=== PATIENT | female | born 1995 | race Caucasian/White ===

== ENCOUNTER 2016-11-11 20:40 | Outpatient (CLI) | payer MEDICAID ==
[2016-11-11] MEDS ORDERED: LACTATED RINGERS 500 ML IV ONE (22:17)
[2016-11-11 22:29] VITALS: BP 130/74
[2016-11-11 22:41] LABS: Bacteria,Urine 3+ /HPF (Negative); Bilirubin,Urine NEG (Negative); Blood,Urine NEG (Negative); Ketones,Urine NEG (Negative); Leukocyte Esterase,Urine NEG (Negative); Mucus,Urine FEW /HPF; Nitrite,Urine NEG (Negative); Protein,Urine <15 mg/dL mg/dL (Negative); Urobilinogen,Urine < 2.0 mg/dL (<2.0)
== END 2016-11-11 23:41 | disposition home or self-care (01) ==
LOC: TRG 20:40
PROVIDERS: ATTEND Specialist
DX: O26.893 Other specified pregnancy related conditions, third trimester (principal); R10.9 Unspecified abdominal pain; Z3A.27 27 weeks gestation of pregnancy
CPT/HCPCS: 81001

== ENCOUNTER 2016-11-19 19:48 | Outpatient (CLI) | payer MEDICAID ==
[2016-11-19 20:48] VITALS: BP 108/67
== END 2016-11-19 21:30 | disposition home or self-care (01) ==
LOC: TRG 19:48
PROVIDERS: ATTEND Obstetrics & Gynecology
DX: O47.9 False labor, unspecified (principal); Z3A.00 Weeks of gestation of pregnancy not specified

== ENCOUNTER 2016-11-26 20:48 | Outpatient (CLI) | payer MEDICAID ==
[2016-11-26 21:55] LABS: Bacteria,Urine 1+ /HPF (Negative); Bilirubin,Urine NEG (Negative); Blood,Urine NEG (Negative); Ketones,Urine 80 mg/dL (Negative); Leukocyte Esterase,Urine NEG (Negative); Mucus,Urine FEW /HPF; Nitrite,Urine NEG (Negative); Protein,Urine <15 mg/dL mg/dL (Negative); Urobilinogen,Urine < 2.0 mg/dL (<2.0); WBC,Urine < 1.0 /HPF (0.0-6.0)
== END 2016-11-26 23:07 | disposition home or self-care (01) ==
LOC: TRG 20:48
PROVIDERS: ATTEND Obstetrics & Gynecology
DX: O26.893 Other specified pregnancy related conditions, third trimester (principal); R10.9 Unspecified abdominal pain; Z3A.30 30 weeks gestation of pregnancy
CPT/HCPCS: 81001

== ENCOUNTER 2016-11-30 15:30 | Inpatient (IN) | payer MEDICAID ==
[2016-11-30] MEDS ORDERED: LACTATED RINGERS 500 ML IV ONE (18:30)
[2016-11-30] MEDS ORDERED: MILK OF MAGNESIA PO PRN (19:59)
[2016-11-30] MEDS ORDERED: ROBITUSSIN DM PO PRN (19:59)
[2016-11-30] MEDS ORDERED: DEEP SEA NS PRN (19:59)
[2016-11-30] MEDS ORDERED: TYLENOL PO PRN (19:59)
[2016-11-30] MEDS ORDERED: BENADRYL PO PRN (19:59)
[2016-11-30] MEDS ORDERED: COLACE PO PRN (19:59)
[2016-11-30] MEDS ORDERED: ZOFRAN IV PRN (19:59)
--- NOTE | 2016-11-30 21:22 | History and Physical Report ---
History of Present Illness Date of examination: 11/30/16 Date of admission: 11/30/16 20:16 Chief complaint: depression, hopelessness, suicidal ideation History of present illness: Pt is 21 year old female primigravida at 30w2d presents with dizziness and feeling like she was about to faint in the shower. She reports that she had not eaten all day because she was crying and her blood glucose was noted to be 66. Upon further questioning, the pt reports feelings of hopelessness and she told her mother that she wanted to kill herself "in the heat of the moment." She currently denies suicidal ideation as well as a plan to act on such thoughts. Of note, she does have a history of bipolar depression previously on Celexa and Ophir prior to . 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 She has had limited care at [facility] since transfer into care that has been complicated by depression, genital herpes and obesity. Prenatals unavailable for review at this time. 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 Social history: single (poor social situation, living with mother who has recently asked her to move out; few resources ) - Obstetrical History Expected Date of Delivery: 02/06/17 Actual Gestation: 30 Week(s) 2 Day(s) : 1 Medications and Allergies Allergies Allergy/AdvReac Type Severity Reaction Status Date / Time No Known Allergies Allergy Verified 11/11/16 22:21 Active Meds: Active Medications Acetaminophen (Tylenol) 650 mg PO Q4H PRN PRN Reason: Pain MILD(1-3)/Fever >100.5/FERNÁNDEZ Diphenhydramine HCl (Benadryl) 25 mg PO Q6H PRN PRN Reason: Itching Docusate Sodium (Colace) 100 mg PO Q12H PRN PRN Reason: Constipation Guaifenesin (Robitussin Dm) 10 ml PO Q6H PRN PRN Reason: Cough Magnesium Hydroxide (Milk Of Magnesia) 30 ml PO QHS PRN PRN Reason: Laxative Effect Multivitamins/Iron/Calcium ( Vitamin) 1 each PO QDAY ABDOULAYE Ondansetron HCl (Zofran) 4 mg IV Q6H PRN PRN Reason: Nausea And Vomiting Sodium Chloride (Deep Sea) 2 spray NS Q4H PRN PRN Reason: Congestion Review of Systems All systems: negative Ears, nose, mouth and throat: ear pain (right, throbbing, intermittent ) Psychiatric: anxiety, suicidal ideation, depression, hopelessness, anxiety attacks, sadness/tearfullness - Vital Signs Vital signs: Vital Signs Pulse Pulse Ox 76 82 L 11/30/16 16:14 11/30/16 16:14 Temp Pulse Resp BP Pulse Ox 99.1 F 123 H 18 105/56 98 11/30/16 16:18 11/30/16 21:18 11/30/16 16:18 11/30/16 20:30 11/30/16 21:18 - Physical Exam Breasts: Positive: deferred Cardiovascular: Regular rate Lungs: Positive: Clear to auscultation Abdomen: Positive: soft (gravid, obese ) Uterus: Positive: enlarged (gravid ) Extremities: Positive: normal - Obstetrical FHR: auscultation normal Uterine Contraction Monitor Mode: External Uterine Contraction Pattern: Absent Uterine Tone Measurement Phase: Resting Results Abnormal lab results 11/30/16 Range/Units 17:44 POC Glucose 66 L (70-105) All other labs normal. Assessment and Plan A: IUP at 30w2d Depression with suicidal ideation Poor social situation Obesity Genital Herpes Tachycerdia P: Admit to labor and delivery under 1013 form. Psych consult. Sitter at bedside CMP, TSH IV hydration.
[2016-11-30 22:24] LABS: Alanine Aminotransferase 21 units/L (7-56); Albumin/Globulin Ratio 0.9 %; Alkaline Phosphatase 87 units/L (35-129); Bilirubin,Total < 0.2 mg/dL (0.1-1.2); Blood Urea Nitrogen 9 mg/dL (7-17); Calcium 9.1 mg/dL (8.4-10.2); Carbon Dioxide 20 mmol/L (22-30); Chloride 106.2 mmol/L (98-107); Glucose 118 mg/dL (65-100); Potassium 3.5 mmol/L (3.6-5.0); Sodium 141 mmol/L (137-145); Total Protein 6.3 g/dL (6.3-8.2)
[2016-11-30 22:30] LABS: Anion Gap 18 mmol/L
[2016-12-01] MEDS ORDERED: LACTATED RINGERS IV NR
[2016-12-01] MEDS: LACTATED RINGERS 1,000 ML IV SCH ×2 (00:11→06:26)
--- NOTE | 2016-12-01 08:01 | Admit Criteria Form ---
Admission Criteria Documentation: [facility] Clinical Indications for Admission to Inpatient Care (Place 'X' for any and all applicable criteria): Hospital admission is needed for appropriate care of the patient because of ANY ONE of the following[A] (3)(4)(5): [X]I. Inpatient behavioral care is needed as indicated by ALL of the following: [X]a) Treatment is needed because of patient risk due to ANY ONE of the following: [X]i) Imminent danger to self due to ANY ONE of the following ( 7)(8): [ ]1) Imminent risk for recurrence of a suicide attempt or act of serious self-harm as indicated by ALL of the following: [ ]A. Very recent suicide attempt or deliberate act of serious self-harm [ ]B. Absence of sufficient relief of the action' s precipitants [ ]2) Current plan for suicide or serious self-harm [X]3) Persistent thoughts of suicide or serious self- harm that cannot be adequately monitored at a lower level of care because of ANY ONE of the following: [ ]A. Insufficient behavioral care provider availability [X]B. Inadequate patient support system [ ]C. Patient characteristics such as high impulsivity or unreliability [ ]D. Ruminative flooding; uncontrollable and overwhelming profusion of negative thoughts [ ]E. Frantic hopelessness; fatalistic conviction that life will not improve along with oppressive sense of entrapment and doom [ ]F. Active substance use disorder is present [ ]G. Ready access to lethal means is present [ ]ii) Imminent danger to others due to ANY ONE of the following( 10)(11): [ ]1) Imminent risk for recurrence of an attempt to seriously harm another as indicated by ALL of the following: [ ]A. Very recent attempt to seriously harm another [ ]B. Absence of sufficient relief of the action' s precipitants [ ]2) Current plan for homicide or seriously harming another [ ]3) Command auditory hallucination for serious self harm to self or others [ ]4) Persistent thoughts of homicide or seriously harming another that cannot be adequately monitored at a lower level of care because of ANY ONE of the following: [ ]A. Insufficient behavioral care provider availability [ ]B. Inadequate patient support system [ ]C. Patient characteristics such as high impulsivity or unreliability [ ]D. Active substance use disorder is present [ ]E. Ready access to lethal means is present [ ]iii) Behavioral health disorder is present with ALL of the following: (12)(16)(17)(18): [ ]1) Severe psychiatric or behavioral symptoms are present , including ANY ONE of the following: [ ]A. Hallucinations that are very bothersome to patient or are associated with severe pressure to respond to voices(17)(18) [ ]B. Delusions that are very bothersome to patient or are associated with severe pressure to act on beliefs(17)(18) [ ]C. Disorganized speech that is almost impossible to follow(17)(18) [ ]D. Motor behavior that is almost constantly abnormal or bizarre or catatonic(17)(18) [ ]E. Severe negative symptoms (eg, severe decrease in facial expression or self-initiated behavior)(17)(18) [ ]F. Severe brenda (eg, daily periods of extensive mood elevation or irritability)(19)(20)(21)(22) [ ]G. Severe depression (eg, daily symptoms of deep hopelessness)[C] [ ]H. Severe anxiety[D] [ ]I. Severe comorbid substance use disorder with inability to control use, intense withdrawal symptoms, or extreme negative impact on primary psychiatric disorder(2)(7)(25) [ ]J. Severe impairment in cognition, memory, judgment, or impulse control(26)(27) [ ]K. Severe impairment in behavior, including physical or verbal aggression, disruptive behaviors, or internal or external anger manifestations (eg, rumination or outbursts)(28) [ ]L. Other psychiatric symptoms which are acute or represent worsening over baseline (eg, hyperactivity, agitation, obsessions, or compulsions)(29)(30)(31) [ ]2) Severe dysfunction in daily living is present as indicated by ANY ONE of the following: [ ]A. Extreme deterioration in social interactions ( eg, threatening behaviors with little or no provocation) [ ]B. Complete withdrawal from all social interactions [ ]C. Complete neglect of self-care with associated impairment in physical status [ ]D. Extreme disruption in vegetative function (eg , life-sustaining functions such as eating) [ ]E. Complete inability to maintain any appropriate aspect of personal responsibility in any adult roles (eg, occupational, parental) [X]b) Treatment situation and needs are appropriate for level as indicated by ANY ONE of the following(13)(16): [ ]i) Patient unwilling to participate voluntarily and requires treatment (eg, legal commitment) in an involuntary unit [ ]ii) Voluntary treatment at lower level not feasible (e.g., very short-term crisis intervention or residential care unavailable or unacceptable for patient condition) [ ]iii) Need for physical restraint, seclusion, or other involuntary control (e.g., actively violent patient and adequate clinical rapport cannot be established to control violence) (25) [X]iv) Gxbagu-qxd-empum medical or nursing care to address symptoms and initiate intervention is required; specific need has been identified [ ]II. Delirium as described by ANY ONE of the following (26)(27)(28): [ ]a) Delirium due to alcohol or sedative [B] withdrawal (16)(29)(30)( 31) [ ]b) Delirium of uncertain etiology that has not responded to appropriate treatment in emergency department or urgent care setting (32)(33) [ ]c) Delirium that prevents performance of a life-sustaining function (eg, feeding or hydrating oneself) (9) [ ]III. Administration of a somatic treatment that requires svogds-kvd-anjrn medical or nursing care because of a potential adverse physical effect or medical comorbidity(7) [ ]IV. Behavioral Health condition, symptom, or finding for which emergency and observation care have failed or are not considered appropriate The original [facility] content created by [employer] has been revised. The portions of the content which have been revised are identified through the use of italic text or in bold, and [facility] has neither reviewed nor approved the modified material. All other unmodified content is copyright [facility]. Please see references footnoted in the original [facility] edition 2016 Admission Criteria Met: Yes
--- NOTE | 2016-12-01 08:17 | Ultrasound Report ---
OB LIMITED History: well-being, evaluate amniotic fluid. Technique: Transabdominal ultrasound with Doppler interrogation. Gestation: Single Amniotic Fluid: Normal DINORAH = 16.2 cm Heart Rate: 143 BPM
[2016-12-01] MEDS ORDERED: PRENATAL VITAMIN PO SCH (10:00)
--- NOTE | 2016-12-01 13:11 | Event Note ---
Date: 12/01/16 HD#1 Depression Patient deneis any si nor HI this am. Boyfriend in room this am. sitter there VSS nst q shift reactive good fm await social service recommendation of home environmnent await Psych eval low K+ 3.5 ( nl 3.6) recommneded increase banana and continue PNV TSH nl will continue close monitor.
[2016-12-01 16:55] VITALS: BP 115/61
--- NOTE | 2016-12-01 17:54 | Event Note ---
Date: 12/01/16 HD#1 30 weeks Depression - feeling slightly better today s/p psychology consult ( mental health asseser for [facility], Joseph Veras ) ) recommended transfer to facility [facility] hospital program ( Tejas Schuler MD) agree with plan to discharge to above baby doing well no contractions and NST reacticve f/u with Dr. Brand in clinic Denies any si nor HI
== END 2016-12-01 19:03 | DRG 781 ==
LOC: TRG 15:30 → LD 19:36 → TRG 20:16 → LD 20:16 → OBSVTOIN 12-01 10:26
PROVIDERS: ADMIT Obstetrics & Gynecology; ATTEND Obstetrics & Gynecology
DX: O99.343 Other mental disorders complicating pregnancy, third trimester (principal); O99.213 Obesity complicating pregnancy, third trimester; E66.9 Obesity, unspecified; O98.313 Other infections with a predominantly sexual mode of transmission complicating pregnancy, third trimester; A60.09 Herpesviral infection of other urogenital tract; O99.413 Diseases of the circulatory system complicating pregnancy, third trimester; R00.0 Tachycardia, unspecified; R45.851 Suicidal ideations; F32.9 Major depressive disorder, single episode, unspecified; Z68.41 Body mass index [BMI] 40.0-44.9, adult; Z3A.30 30 weeks gestation of pregnancy
CPT/HCPCS: 36415; 76815; 80053; 82962; 84443; G0378; J7120

== ENCOUNTER 2016-12-02 15:51 | Outpatient (CLI) | payer MEDICAID ==
[2016-12-02] MEDS ORDERED: LACTATED RINGERS 500 ML IV ONE (16:18)
[2016-12-02] MEDS ORDERED: ZOFRAN IV ONE (16:26)
[2016-12-02] MEDS ORDERED: REGLAN IV ONE (16:33)
[2016-12-02] MEDS ORDERED: TRANSDERM-SCOP TD ONE (16:34)
[2016-12-02] MEDS ORDERED: D5LR 1,000 ML IV ONE (16:45)
[2016-12-02 16:55] LABS: Basophils % (Auto) 0.5 % (0.0-1.8); Eosinophils % (Auto) 0.9 % (0.0-4.3); Hematocrit 27.1 % (30.3-42.9); Mean Corpuscular HGB Conc 33 % (30-34); Mean Corpuscular Hemoglobin 26 pg (28-32); Mean Corpuscular Volume 79 fl (79-97); Platelet Count 288 K/mm3 (140-440); Red Blood Count 3.45 M/mm3 (3.65-5.03); Red Cell Distribution Width 16.1 % (13.2-15.2)
[2016-12-02] MEDS ORDERED: INFUVITE 10 ML in D5LR 1,000 ML IV ONE (17:00)
[2016-12-02 17:01] LABS: Bilirubin,Urine NEG (Negative); Blood,Urine NEG (Negative); Ketones,Urine TR mg/dL (Negative); Leukocyte Esterase,Urine NEG (Negative); Nitrite,Urine NEG (Negative); Protein,Urine <15 mg/dL mg/dL (Negative); Urobilinogen,Urine < 2.0 mg/dL (<2.0)
[2016-12-02 17:18] LABS: Alanine Aminotransferase 20 units/L (7-56); Albumin 3.3 g/dL (3.9-5); Albumin/Globulin Ratio 1.2 %; Alkaline Phosphatase 95 units/L (35-129); BUN/Creatinine Ratio 11.66; Bilirubin,Total 0.2 mg/dL (0.1-1.2); Blood Urea Nitrogen 7 mg/dL (7-17); Calcium 9.1 mg/dL (8.4-10.2); Carbon Dioxide 20 mmol/L (22-30); Chloride 101.7 mmol/L (98-107); Glucose 105 mg/dL (65-100); Potassium 4.2 mmol/L (3.6-5.0); Sodium 138 mmol/L (137-145)
[2016-12-02 17:26] LABS: Anion Gap 21 mmol/L
[2016-12-02 18:31] VITALS: BP 104/54
== END 2016-12-02 20:28 | disposition home or self-care (01) ==
LOC: TRG 15:51
PROVIDERS: ATTEND Obstetrics & Gynecology
DX: O77.9 Labor and delivery complicated by fetal stress, unspecified (principal); O47.03 False labor before 37 completed weeks of gestation, third trimester; Z3A.30 30 weeks gestation of pregnancy
CPT/HCPCS: 36415; 59025; 80053; 81001; 85025; 96360; 96361; J2405; J2765; J7121

== ENCOUNTER 2017-01-31 19:34 | Outpatient (CLI) | payer SELFPAY ==
[2017-01-31 20:45] VITALS: BP 121/63
[2017-01-31 22:45] LABS: HIV-1 Antigen p24 Non React (Non React); HIVR-1/2 Ab Non React (Non React)
== END 2017-01-31 22:05 | disposition home or self-care (01) ==
LOC: TRG 19:34
PROVIDERS: ATTEND Obstetrics & Gynecology
DX: O47.1 False labor at or after 37 completed weeks of gestation (principal); Z3A.39 39 weeks gestation of pregnancy
CPT/HCPCS: 36415; 59025; 87116; 87806

== ENCOUNTER 2017-02-06 10:46 | Outpatient (CLI) | payer MEDICAID, OTHER ==
[2017-02-06 11:14] VITALS: BP 132/75
[2017-02-06] MEDS ORDERED: VISTARIL PO PRN (13:37)
== END 2017-02-06 13:37 | disposition home or self-care (01) ==
LOC: TRG 10:46
PROVIDERS: ATTEND Obstetrics & Gynecology
DX: O48.0 Post-term pregnancy (principal); Z3A.40 40 weeks gestation of pregnancy
CPT/HCPCS: 59025; Q0177

== ENCOUNTER 2017-02-06 21:27 | Inpatient (IN) | payer MEDICAID, OTHER ==
[2017-02-06] MEDS ORDERED: MORPHINE IM ONE (23:54)
[2017-02-06] MEDS ORDERED: PHENERGAN PO ONE (23:58)
[2017-02-07] MEDS ORDERED: SUBLIMAZE IV PRN (01:05)
[2017-02-07] MEDS ORDERED: STADOL IV PRN (01:05)
[2017-02-07] MEDS ORDERED: POLYCILLIN/NS 2 GM/100 ML 2 GM/100 ML BAG IV ONE (01:05)
[2017-02-07] MEDS ORDERED: PITOCin 30 UNIT in NACL 0.9% 500 ML 497 ML IV ONE (01:06)
[2017-02-07] MEDS ORDERED: LACTATED RINGERS 1,000 ML ONE (02:02)
[2017-02-07 03:08] LABS: Hemoglobin 7.8 gm/dl (10.1-14.3); Mean Corpuscular HGB Conc 31 % (30-34); Platelet Count 286 K/mm3 (140-440); Red Blood Count 3.72 M/mm3 (3.65-5.03); White Blood Count 8.4 K/mm3 (4.5-11.0)
[2017-02-07 03:17] LABS: Mean Corpuscular Hemoglobin 21 pg (28-32); Mean Corpuscular Volume 67 fl (79-97); Red Cell Distribution Width 20.4 % (13.2-15.2)
[2017-02-07] MEDS ORDERED: ePHEDrine SULFATE ONE (05:30)
[2017-02-07] MEDS: LACTATED RINGERS 1,000 ML IV SCH ×2 (06:30→07:51)
--- NOTE | 2017-02-07 06:47 | Anesthesia Consultation ---
Anesthesia Consult and Med Hx Date of service: 02/07/17 - Airway Anesthetic Teeth Evaluation: Good ROM Head & Neck: Adequate Mental/Hyoid Distance: Adequate Intubation Access Assessment: Possibly Difficult - Pulmonary Exam CTA: Yes - Cardiac Exam Cardiac Exam: RRR - Pre-Operative Health Status ASA Pre-Surgery Classification: ASA3, Emergency Proposed Anesthetic Plan: Epidural, Spinal - Pulmonary Hx Asthma: No COPD: No Hx Pneumonia: No - Cardiovascular System Hx Hypertension: No - Central Nervous System Hx Seizures: No Hx Psychiatric Problems: Yes (bipolar depression) - Endocrine Hx Renal Disease: No Hx End Stage Renal Disease: No Hx Hypothyroidism: No Hx Hyperthyroidism: No - Hematic Hx Anemia: No Hx Sickle Cell Disease: No - Other Systems Hx Alcohol Use: No Hx Obesity: Yes (morbid)
[2017-02-07] MEDS ORDERED: ePHEDrine SULFATE IV PRN (06:48)
[2017-02-07] MEDS ORDERED: NARCAN 2 MG/2 ML IV PRN (06:48)
[2017-02-07] MEDS ORDERED: fentaNYL-BUPIV 2 MCG/ML-0.125% 200 MCG/100 ML BAG EPIDURAL SCH (07:00)
[2017-02-07] MEDS ORDERED: POLYCILLIN/NS 1 GM/50 ML 1 GM/50 ML BAG IV SCH (08:00)
--- NOTE | 2017-02-07 08:05 | Ultrasound Report ---
OB LIMITED INDICATION: DINORAH. Possible rupture of membranes. COMPARISON: 11/30/2016 TECHNIQUE: Transabdominal grayscale ultrasound with Doppler interrogation. Gestation: Espinal Position: Cephalic Amniotic Fluid: Decreased (< 7 cm) DINORAH = 6.5 cm Heart Rate: 140 BPM
[2017-02-07] MEDS ORDERED: PITOCin/NS 20 UNIT/1000ML DRIP 20,000 MILLIUNITS/1,000 ML BAG IV ONE (08:25)
[2017-02-07] MEDS ORDERED: MINERAL OIL ONE (08:43)
--- NOTE | 2017-02-07 09:16 | History and Physical Report ---
History of Present Illness Date of examination: 02/07/17 Date of admission: 02/07/17 01:12 Chief complaint: broke my water at 11am History of present illness: This is a 21 yo at 40 weeks came in to triage with complaints of leaking and noted to be grossly ruptured. patient was admitted. Patient is a transfer patient into care at 28 weeks. During her cousrse she has been treated for UTI with macrobid in nov. She also has a hx of genital herpes no lesions noted and no prodromal nor outbreaks been on valtrex since 02/03/17. She is also known for GBS in urine. She has anemia on iron tabs. H/o bipolar and suicidal ideations in 11/2016 and hospitalized. She also has obesity. 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, other (ovarian cyst) Family/Genetic History: hypertension, other (arthritis) Social history: single, smoking (previous) - Obstetrical History Expected Date of Delivery: 02/06/17 Actual Gestation: 40 Week(s) 1 Day(s) : 1 Para: 0 Hx # Term Pregnancies: 0 Number of Pregnancies: 0 Spontaneous Abortions: 0 Induced : 0 Number of Living Children: 0 Medications and Allergies Allergies Allergy/AdvReac Type Severity Reaction Status Date / Time No Known Allergies Allergy Verified 11/11/16 22:21 Active Meds: Active Medications Butorphanol Tartrate (Stadol) 2 mg IV Q2H PRN PRN Reason: Labor Pain Fentanyl (Sublimaze) 100 mcg IV Q2HR PRN PRN Reason: Pain Last Admin: 02/07/17 04:51 Dose: 100 mcg Oxytocin 30 unit/ Sodium (Chloride) 500 mls @ 1.99 mls/hr IV TITR ONE; 2 MILLIUNITS/MIN PRN Reason: Protocol Stop: 02/17/17 12:21 Last Titration: 02/07/17 04:40 Dose: 2 milliunits/min, 1.99 mls/hr Lactated Ringer's (Lactated Ringers) 1,000 mls @ 125 mls/hr IV DIRECT ABDOULAYE Last Admin: 02/07/17 07:51 Dose: 125 mls/hr Fentanyl/Bupivacaine/Sodium Chlor (Fentanyl-Bupiv 2 Mcg/Ml-0.125%) 200 mcg in 100 mls @ 12 mls/hr EPIDURAL TITR ABDOULAYE PRN Reason: Protocol Ampicillin Sodium (Polycillin/Ns 1 Gm/50 Ml) 1 gm in 50 mls @ 100 mls/hr IV Q4HR ABDOULAYE PRN Reason: Protocol Review of Systems Constitutional: weight gain Eyes: deferred Ears, nose, mouth and throat: deferred Breasts: deferred Genitourinary: leakage of fluid, contractions, no genital sores Rectal Exam: deferred Integumentary: deferred - Vital Signs Vital signs: Vital Signs Pulse BP 91 H 127/74 02/06/17 21:44 02/06/17 21:44 Temp Pulse Resp BP Pulse Ox 97.6 F 94 H 20 131/57 100 02/07/17 02:54 02/07/17 09:05 02/07/17 04:51 02/07/17 09:05 02/07/17 08:36 - Physical Exam Breasts: Positive: deferred Cardiovascular: Regular rate, Normal S1, Normal S2 Lungs: Positive: Clear to auscultation, Normal air movement Abdomen: Positive: normal appearance, soft, normal bowel sounds. Negative: distention, tenderness Vulva: both: normal Vagina: Positive: normal moisture. Negative: ulceration Cervix: Negative: lesion Uterus: Positive: enlarged Extremities: Positive: normal Deep Tendon Reflex Grade: Normal +2 - Obstetrical FHR: category 1 Uterine Contraction Monitor Mode: External Uterine Contraction Pattern: Regular Uterine Tone Measurement Phase: Contraction Uterine Contraction Intensity: Moderate Results Result Diagrams: 02/07/17 02:15 Abnormal lab results 02/07/17 Range/Units 02:15 Hgb 7.8 L (10.1-14.3) gm/dl Hct 25.0 L (30.3-42.9) % MCV 67 L (79-97) fl MCH 21 L (28-32) pg RDW 20.4 H (13.2-15.2) % All other labs normal. Assessment and Plan A/P HD#! srom clear admit with admission labs ivf prepare for epidural amp for GBS + preparation for expected vaginal delivery
--- NOTE | 2017-02-07 09:28 | Procedure Note ---
OB Delivery Note - Delivery Date of Delivery: 02/07/17 Surgeon: ANNETTA NUNO Estimated blood loss: 300cc - Vaginal Delivery presentation: vertex Delivery position: OA Intrapartum events: none Delivery induction: none Delivery augmentation: pitocin Delivery monitor: external FHT, internal FHT Route of delivery: Delivery placenta: spontaneous Delivery cord: nuchal cord Episiotomy: none Delivery laceration: 1st degree Delivery repair: vicryl Anesthesia: epidural Delivery comments: Patient was noted to be c/c+1 and commenced to pushing delivering viable male Apgars 8 and 9 weight 7pounds and 15oz =3589g at 0846. shoulder delivered after reducing nuchal cord x 1 loose. nasal and oropharynx suction after placing baby on mothers chest. Cord clamped and cut. Placenta delivered intact with 3 vessel cord at 0851. small 1st degree perineum reparied with vicryl on ctx with figure of 8. Patient tolerated procedure well. sponge and needle counts correct x 2. - A at 1 minute: 8 at 5 minutes: 9 Gender: Male
[2017-02-07] MEDS ORDERED: SENOKOT S PO SCH (10:00)
[2017-02-07] MEDS ORDERED: BENADRYL PO PRN (10:00)
[2017-02-07] MEDS ORDERED: PHENERGAN PO PRN (10:00)
[2017-02-07] MEDS ORDERED: DULCOLAX PR PRN (10:00)
[2017-02-07] MEDS ORDERED: DERMOPLAST TP PRN (10:00)
[2017-02-07] MEDS ORDERED: MILK OF MAGNESIA PO PRN (10:00)
[2017-02-07] MEDS ORDERED: PHENERGAN PR PRN (10:00)
[2017-02-07] MEDS ORDERED: LANSINOH TP PRN (10:00)
[2017-02-07] MEDS ORDERED: PERCOCET 5/325 PO PRN (10:00)
[2017-02-07] MEDS ORDERED: TYLENOL PO PRN (10:00)
[2017-02-07] MEDS ORDERED: NORCO 5/325 PO PRN (10:00)
[2017-02-07] MEDS ORDERED: SODIUM CHLORIDE FLUSH SYRINGE 10 ML IV NR (10:00)
[2017-02-07] MEDS ORDERED: TORADOL IV PRN (10:00)
[2017-02-07] MEDS ORDERED: TUCKS PAD TP PRN (10:00)
[2017-02-07] MEDS ORDERED: ZOFRAN IV PRN (10:00)
[2017-02-07] MEDS: MOTRIN PO SCH ×2 (12:00→23:41)
[2017-02-07] MEDS ORDERED: MINERAL OIL PO ONE (18:11)
[2017-02-07] MEDS: COLACE PO SCH (21:59)
[2017-02-07 22:03] LABS: Hematocrit 20.8 % (30.3-42.9); Hemoglobin 6.6 gm/dl (10.1-14.3)
[2017-02-08] MEDS: MOTRIN PO SCH ×4 (05:10→21:50)
[2017-02-08] MEDS ORDERED: BOOSTRIX IM ONE (06:00)
[2017-02-08] MEDS: COLACE PO SCH ×2 (10:38→21:49)
[2017-02-08] MEDS: FEOSOL PO SCH ×3 (10:38→21:49)
[2017-02-08] MEDS: PRENATAL VITAMIN PO SCH (10:38)
--- NOTE | 2017-02-08 10:56 | Progress Note ---
Subjective Date of service: 02/08/17 Interval history: 1st day after normal vaginal delivery Patient is in the bed, comfortable. Pain is well under control. No nausea or vomiting. Ambulated well. No residual neurological deficit. No anesthesia complications Objective - Constitutional Vitals: Vital Signs - 12hr 02/08/17 02/08/17 02/08/17 00:35 05:45 08:22 Temperature 98.9 F 98.9 F 98.7 F Pulse Rate [ 89 76 81 From Monitor] Respiratory 18 22 20 Rate Blood Pressure 124/60 120/70 101/55 [Left Arm] - Labs CBC & Chem 7: 02/07/17 21:18 Labs: Abnormal lab results 02/07/17 Range/Units 21:18 Hgb 6.6 L (10.1-14.3) gm/dl Hct 20.8 L (30.3-42.9) %
--- NOTE | 2017-02-08 13:40 | Progress Note ---
Assessment and Plan A/P PPD#1 s/p VSS iron for anemia tid patient asymptomatic ( denies dizziness, sob or lightheadedness) bottle feeding Anemia (chronic and acute) asymptomatic h7.8-6.8 Denies any suicidal nor homicdal ideations Has good support from family continue routine PP O+ no rhogam indicated d/c home tomorrow Subjective - Subjective Date of service: 02/08/17 Principal diagnosis: S/p Interval history: This is a 21 yo at 40 weeks came in to triage with complaints of leaking and noted to be grossly ruptured. patient was admitted. Patient is a transfer patient into care at 28 weeks. During her cousrse she has been treated for UTI with macrobid in nov. She also has a hx of genital herpes no lesions noted and no prodromal nor outbreaks been on valtrex since 02/03/17. She is also known for GBS in urine. She has anemia on iron tabs. H/o bipolar and suicidal ideations in 11/2016 and hospitalized. She also has obesity. labs O+ ant neg h/h 9.5/29.3 pap normal Rubella Imm RPR nr urine cultrues GBS + hep neg HIV neg hgb electro AA GC neg chlam neg PPD neg US 11/2016 ferraro EGA 28+3 weeks AUA 29+2 weeks EFW 1358g ( 67%) vertex anterior grade 2-3 placenta nl anatomy h/h 9.6/29.3 DM 102 PLT 251 US 12/09 ferraro EGA 31+4 AUA 32+6 weeks EFW 2013 g (63%) posterior grade 2-3 placenta BPP 8/8 GBS + Patient reports: appetite normal, voiding normally, pain well controlled, flatus , ambulating normally [place]: doing well, bottle feeding Objective - Vital Signs Latest vital signs: Vital Signs Temp Pulse Resp BP 02/08/17 08:22 98.7 F 81 20 101/55 02/08/17 05:45 98.9 F 76 22 120/70 02/08/17 00:35 98.9 F 89 18 124/60 02/07/17 20:05 98.6 F 87 20 113/56 Intake and Output 02/07/17 02/08/17 02/08/17 22:59 06:59 14:59 Intake Total 360 240 Output Total 800 Balance -440 240 Intake: Intake, Free Water 360 240 Output: Urine 800 Void 800 Other: Total, Output Amount 400 # Voids Void 1 - Exam Breasts: Present: deferred Cardiovascular: Present: Regular rate, Normal S1, Normal S2 Lungs: Present: Clear to auscultation, Normal air movement Abdomen: Present: normal appearance, soft, normal bowel sounds. Absent: distention, tenderness Vulva: both: normal Uterus: Present: normal, fundal height below umbilicus. Absent: bogginess, tenderness Extremities: Present: normal Deep Tendon Reflex Grade: Normal +2 - Labs Labs: Abnormal lab results 02/07/17 Range/Units 21:18 Hgb 6.6 L (10.1-14.3) gm/dl Hct 20.8 L (30.3-42.9) %
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
[2017-02-09] MEDS: MOTRIN PO SCH ×2 (04:05→09:46)
[2017-02-09 08:35] VITALS: BP 120/66
[2017-02-09] MEDS: COLACE PO SCH (09:46)
[2017-02-09] MEDS: FEOSOL PO SCH ×2 (09:46→15:10)
[2017-02-09] MEDS: PRENATAL VITAMIN PO SCH (09:46)
--- NOTE | 2017-02-09 11:34 | Progress Note ---
Assessment and Plan - Patient Problems (1) Active labor at term Current Visit: Yes Status: Acute Plan to address problem: Patient doing well Discharge home Subjective - Subjective Date of service: 02/09/17 Principal diagnosis: S/p Interval history: The patient is without any significant complaints. She notes that her lochia is decreasing. Her pain is being controlled. Patient reports: appetite normal, voiding normally, pain well controlled : doing well Objective - Vital Signs Latest vital signs: Vital Signs Temp Pulse Resp BP 02/09/17 08:34 98.8 F 80 18 120/66 02/09/17 00:00 98.6 F 70 16 121/60 02/08/17 19:30 98.6 F 77 16 124/60 Intake and Output 02/08/17 02/09/17 02/09/17 22:59 06:59 14:59 Intake Total 1200 300 Balance 1200 300 Intake: Oral 800 300 Intake, Free Water 400 Other: Total, Intake Amount 300 300 # Voids Indwelling Catheter 1 - Exam Uterus: Present: normal, firm Extremities: Present: edema
--- NOTE | 2017-02-09 11:35 | Discharge Summary ---
Providers - Providers Date of Admission: 02/07/17 01:12 Date of discharge: 02/09/17 Attending physician: LEONA TANNER 02/07/17 Consult to Case Management [CONS] Routine Services Needed at Discharge: Paralegal Supervisor Other Notified:: YES Phone number called:: [phone] Was contact made?: Yes If yes, spoke with:: YASMINE/PSYCH & KEMAR/BUILDING STONECUTTER Time called:: 11:20 Comment:: History of bipolar and admission this s/p delivery Additional Physician Instructions: Psy consult 02/07/17 11:22 psychiatry consult [Consult to Mental Health] [CONS] Routine Reason For Exam: hx: bipolar Place consult to:: social service Notified:: social service Comment:: hx: bipolar; suicidal Nov, 2016 Primary care physician: LEONA TANNER Hospitalization Reason for admission: active labor, rupture of membranes Delivery: Discharge diagnosis: IUP at term delivered baby: male Hospital course: Patient admitted with the complaint of gross rupture membranes. The patient's labor was augmented. She had a successful vaginal delivery. Her course was uneventful. Condition at discharge: Good Disposition: DISCHARGED TO HOME OR SELFCARE - Discharge Diagnoses (1) Active labor at term Status: Acute Plan - Discharge Medications Prescriptions: Docusate Sodium [Colace] 100 mg PO BID PRN #30 capsule PRN Reason: Constipation Ibuprofen [Motrin] 600 mg PO Q8H PRN #30 tablet PRN Reason: Pain oxyCODONE /ACETAMINOPHEN [Percocet 5/325] 1 tab PO Q6HR PRN #20 tablet PRN Reason: Pain - Provider Discharge Summary Activity: no sex for 6 weeks, no heavy lifting 4 weeks, no strenuous exercise Diet: routine Instructions: routine Additional instructions: [] Smoking cessation referral if applicable(refer to patient education folder for contact #) [] Refer to [facility] Booklet Call your doctor immediately for: * Fever > 100.5 * Heavy vaginal bleeding ( >1 pad per hour) * Severe persistent headache * Shortness of breath * Reddened, hot, painful area to leg or breast * Drainage or odor from incision. * Keep incision clean and dry at all times and follow doctor's instructions regarding bathing/showering Scheduled visit in 4 weeks - Follow up plan Forms: [facility] Discharge Summary
== END 2017-02-09 15:40 | disposition home or self-care (01) | DRG 775 ==
LOC: TRG 21:27 → LD 02-07 01:12 → OB 02-07 11:02
PROVIDERS: ADMIT Obstetrics & Gynecology; ATTEND Obstetrics & Gynecology
PROC: 10E0XZZ Delivery of Products of Conception, External Approach (ICD-10-PCS; principal; 2017-02-07)
PROC: 0HQ9XZZ Repair Perineum Skin, External Approach (ICD-10-PCS; 2017-02-07)
PROC: 3E0S3CZ (ICD-10-PCS; 2017-02-07)
PROC: 00HU33Z Insertion of Infusion Device into Spinal Canal, Percutaneous Approach (ICD-10-PCS; 2017-02-07)
PROC: 3E0234Z Introduction of Serum, Toxoid and Vaccine into Muscle, Percutaneous Approach (ICD-10-PCS; 2017-02-08)
DX: O42.02 Full-term premature rupture of membranes, onset of labor within 24 hours of rupture (principal); O99.824 Streptococcus B carrier state complicating childbirth; O70.0 First degree perineal laceration during delivery; O99.214 Obesity complicating childbirth; O99.354 Diseases of the nervous system complicating childbirth; O99.02 Anemia complicating childbirth; O69.81X0 Labor and delivery complicated by cord around neck, without compression, not applicable or unspecified; F31.9 Bipolar disorder, unspecified; E66.01 Morbid (severe) obesity due to excess calories; D64.9 Anemia, unspecified; Z3A.40 40 weeks gestation of pregnancy; Z23 Encounter for immunization; Z37.0 Single live birth; Z68.41 Body mass index [BMI] 40.0-44.9, adult
CPT/HCPCS: 36415; 76815; 85014; 85018; 85027; 86850; 86900; 86901; 90471; 90715; 99211; G0463; J0290; J2270; J2590; J3010; J7040; J7120; Q0169

== ENCOUNTER 2017-03-24 22:36 | Emergency (ER) | payer MEDICAID ==
[2017-03-24 22:53] VITALS: BP 133/81
--- NOTE | 2017-03-25 03:03 | Emergency Department Report ---
ED Upper Extremity Inj HPI - General Chief Complaint: Extremity Injury, Upper Stated Complaint: RIGHT MIDDLE FINGER PAIN Time Seen by Provider: 03/25/17 02:51 Source: patient Mode of arrival: Ambulatory Limitations: No Limitations - History of Present Illness Initial Comments: 21-year-old female comes in with complaint of right middle finger feels weird like a cramp. She reports that it pops in and out of place. It has been doing this all day. 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 Complaint: Injury to:: right -: days(s) (1) Other Extremity Injury: Fingers: Right (middle) Other Injuries: none Handedness: right Place: work Improves With: none Worsens With: movement of extremity Associated Symptoms: denies other symptoms - Related Data Home Medications Medication Instructions Recorded Confirmed Last Taken Vit W-Ca,Fe,FA(<1 mg) 1 tab QDAY 02/08/17 02/08/17 1 Day Ago [ Vitamins] Previous Rx's Medication Instructions Recorded Last Taken Type Docusate Sodium [Colace] 100 mg PO BID PRN #30 capsule 02/08/17 Unknown Rx Ibuprofen [Motrin] 600 mg PO Q8H PRN #30 tablet 02/08/17 Unknown Rx oxyCODONE /ACETAMINOPHEN [Percocet 1 tab PO Q6HR PRN #20 tablet 02/08/17 Unknown Rx 5/325] Allergies Allergy/AdvReac Type Severity Reaction Status Date / Time No Known Allergies Allergy Verified 11/11/16 22:21 ED Review of Systems ROS: Stated complaint: RIGHT MIDDLE FINGER PAIN Other details as noted in HPI Constitutional: denies: chills, fever Eyes: denies: eye pain, eye discharge, vision change ENT: denies: ear pain, throat pain Respiratory: denies: cough, shortness of breath, wheezing Cardiovascular: denies: chest pain, palpitations Endocrine: no symptoms reported Gastrointestinal: denies: abdominal pain, nausea, diarrhea Genitourinary: denies: urgency, dysuria, discharge Musculoskeletal: denies: back pain, joint swelling, arthralgia Skin: denies: rash, lesions Neurological: denies: headache, weakness, paresthesias Psychiatric: denies: anxiety, depression ED Past Medical Hx - Past Medical History Previous Medical History?: No Hx Hypertension: No Hx Congestive Heart Failure: No Hx Diabetes: No Hx Deep Vein Thrombosis: No Hx Renal Disease: No Hx Sickle Cell Disease: No Hx Seizures: No Hx Asthma: No Hx COPD: No Hx HIV: No - Surgical History Past Surgical History?: No - Social History Smoking Status: Never Smoker Substance Use Type: None - Medications Home Medications: Home Medications Medication Instructions Recorded Confirmed Last Taken Type Docusate Sodium [Colace] 100 mg PO BID PRN #30 capsule 02/08/17 Unknown Rx Ibuprofen [Motrin] 600 mg PO Q8H PRN #30 tablet 02/08/17 Unknown Rx Vit W-Ca,Fe,FA(<1 mg) 1 tab QDAY 02/08/17 02/08/17 1 Day Ago History [ Vitamins] oxyCODONE /ACETAMINOPHEN [Percocet 1 tab PO Q6HR PRN #20 tablet 02/08/17 Unknown Rx 5/325] ED Physical Exam - General Limitations: No Limitations General appearance: alert, in no apparent distress - Head Head exam: Present: atraumatic, normocephalic - Eye Eye exam: Present: normal appearance - Expanded Upper Extremity Exam Right Neuro motor exam: Present: wrist extension intact, thumb opposition intact, thumb IP flexion intact, thumb adduction intact, fingers 2-5 abduction intact Neurosensory exam: Present: 2-point discrimination ED Course Vital Signs 03/24/17 22:41 Temperature 97.8 F Pulse Rate 91 H Respiratory 16 Rate Blood Pressure 133/81 Blood Pressure 133/81 [Left] O2 Sat by Pulse 100 Oximetry ED Medical Decision Making - Medical Decision Making Patient has been evaluated by this provider fast track. X-ray of right hand pending. Discussed the patient we'll place her in a finger splint. And have her follow-up with orthopedics. Patient verbalized understanding. Critical care attestation.: If time is entered above; I have spent that time in minutes in the direct care of this critically ill patient, excluding procedure time. ED Disposition Clinical Impression: Finger injury Disposition: DISCHARGED TO HOME OR SELFCARE Is pt being admited?: No Does the pt Need Aspirin: No Condition: Stable Instructions: Finger Dislocation (ED) Additional Instructions: Please wear the splint until seen by orthopedics. Referrals: PRIMARY CARE, [Primary Care Provider] - 3-5 Days SALINA PEDERSEN MD [Staff Physician] - 3-5 Days Forms: Work/School Release Form(ED)
--- NOTE | 2017-03-25 03:30 | XRay Report ---
FINAL REPORT EXAM: XR HAND 2V RT HISTORY: Right middle finger deformity COMPARISON: None available. FINDINGS: Two views of the right hand obtained. Bony structures are intact. Joint spaces are preserved. No acute fracture dislocation. IMPRESSION: No acute bony abnormality.
== END 2017-03-25 03:55 | disposition home or self-care (01) ==
LOC: ED 22:36
DX: S69.91XA Unspecified injury of right wrist, hand and finger(s), initial encounter (principal); X58.XXXA Exposure to other specified factors, initial encounter; Y93.89 Activity, other specified; Y99.8 Other external cause status; Y92.89 Other specified places as the place of occurrence of the external cause

== ENCOUNTER 2018-08-23 22:51 | Emergency (ER) | payer MEDICAID ==
[2018-08-23 23:44] LABS: Basophils % (Auto) 0.6 % (0.0-1.8); Eosinophils # (Auto) 0.1 K/mm3 (0.0-0.4); Eosinophils % (Auto) 2.1 % (0.0-4.3); Hematocrit 29.1 % (30.3-42.9); Hemoglobin 9.1 gm/dl (10.1-14.3); Lymphocytes # (Auto) 1.4 K/mm3 (1.2-5.4); Lymphocytes % (Auto) 22.8 % (13.4-35.0); Mean Corpuscular HGB Conc 31 % (30-34); Mean Corpuscular Hemoglobin 21 pg (28-32); Mean Corpuscular Volume 68 fl (79-97); Monocytes # (Auto) 0.4 K/mm3 (0.0-0.8); Monocytes % (Auto) 7.4 % (0.0-7.3); Platelet Count 381 K/mm3 (140-440); Red Blood Count 4.26 M/mm3 (3.65-5.03); Red Cell Distribution Width 20.1 % (13.2-15.2)
[2018-08-24] MEDS ORDERED: ATIVAN IM PRN (00:01)
[2018-08-24] MEDS ORDERED: HALDOL IM PRN (00:01)
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
[2018-08-24 00:11] LABS: Calcium 9.2 mg/dL (8.4-10.2)
[2018-08-24 00:41] LABS: Bilirubin,Urine NEG (Negative); Blood,Urine NEG (Negative); Color,Urine Yellow (Yellow); Mucus,Urine FEW /HPF; Protein,Urine <15 mg/dL mg/dL (Negative); Urobilinogen,Urine < 2.0 mg/dL (<2.0); WBC,Urine < 1.0 /HPF (0.0-6.0)
[2018-08-24 00:47] LABS: Amphetamine Screen,Urine PRESUMPTIVE NEGATIVE; Benzodiazepines Screen,Urine PRESUMPTIVE NEGATIVE; Cannabinoid Screen,Urine PRESUMPTIVE NEGATIVE; Cocaine Screen,Urine PRESUMPTIVE NEGATIVE; Methadone Screen,Urine PRESUMPTIVE NEGATIVE; Opiate Screen,Urine PRESUMPTIVE NEGATIVE
[2018-08-24 08:34] VITALS: BP 109/68
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
== END 2018-08-24 11:14 ==
LOC: EEVIPCON 22:51 → ED 22:51
DX: S71.111A Laceration without foreign body, right thigh, initial encounter (principal); S51.812A Laceration without foreign body of left forearm, initial encounter; F31.9 Bipolar disorder, unspecified; F43.10 Post-traumatic stress disorder, unspecified; X78.8XXA Intentional self-harm by other sharp object, initial encounter; Y93.89 Activity, other specified; Y92.89 Other specified places as the place of occurrence of the external cause; Y99.8 Other external cause status
CPT/HCPCS: 36415; 80048; 80307; 81001; 84703; 85025; 99285; G0480; 80320